=== PATIENT | female | born 1975 | race Caucasian/White ===

== ENCOUNTER 2018-06-16 14:36 | Outpatient (CLI) | payer OTHER ==
[2018-06-16 15:01] LABS: #Basophils 0.1 thou/uL (0.0-0.2); #Eosinphils 0.4 thou/uL (0.0-0.7); #Lymphocytes 1.8 thou/uL (1.20-3.40); #Monocytes 0.6 thou/uL (0.11-0.59); #Neutrophils 4.8 thou/uL (1.40-6.50); %Eosinophils 5.5 % (0.0-10.0); %Monocytes 8.2 % (0.0-10.0); %Neutrophils 62.4 % (42.0-75.0); Hemoglobin 13.9 g/dL (12.0-16.0); Mean Corpuscular HGB CONC 35.6 g/dL (32.0-36.0); Mean Platelet Volume 8.5 fL (7.4-10.4); Platelet Count 204 thou/uL (130-400); RBC Distribution Width 9.9 % (11.5-14.5); Red Blood Cell (RBC) Count 4.49 mill/uL (4.20-5.40); White Blood Cell (WBC) Count 7.6 thou/uL (4.8-10.8)
[2018-06-16 15:16] LABS: ALT (SGPT) 14 U/L (8-55); AST (SGOT) 20 U/L (5-34); Albumin 4.3 g/dL (3.5-5.0); Alkaline Phosphatase 66 U/L (40-150); Anion Gap 12 mmol/L (10-20); BUN (Urea Nitrogen) 14 mg/dL (7.0-18.7); Bilirubin, Total 0.4 mg/dL (0.2-1.2); CRP (Inflammatory) Less than 0.50 mg/dL (= or < 0.5); Calc. Creatinine Clearance 0 mL/min (70-130); Calcium 9.4 mg/dL (7.8-10.44); Carbon Dioxide 25 mmol/L (22-29); Chloride 105 mmol/L (98-107); Estimated GFR-MDRD 55; Globulin 3.2 g/dL (2.4-3.5); Glucose 81 mg/dL (70-105); Potassium 3.8 mmol/L (3.5-5.1); Protein, Total 7.5 g/dL (6.0-8.3); Sodium 138 mmol/L (136-145)
--- NOTE | 2018-06-16 15:21 | MMO ---
BILATERAL SCREENING MAMMOGRAM: Date: 06/16/18 HISTORY: 42-year-old female. Routine screening mammography. COMPARISON: 01/25/14, 02/25/15, 03/11/16, 06/14/17. TECHNIQUE: CC and MLO views of both breasts are submitted for interpretation. This patient's mammogram was reviewed with the assistance of computer-aided detection. FINDINGS: The breasts are composed of scattered fibroglandular tissue. Bilaterally, no suspicious dominant mass , architectural distortion, or suspicious calcifications. IMPRESSION: BIRADS 1: Negative RECOMMENDATION: Annual mammogram. POS: [facility]
== END 2018-06-16 14:37 | disposition home or self-care (01) ==
LOC: SCSMAMMO 14:36
PROVIDERS: ATTEND Student in an Organized Health Care Education/Training Program
DX: Z12.31 Encounter for screening mammogram for malignant neoplasm of breast (principal); K51.00 Ulcerative (chronic) pancolitis without complications
CPT/HCPCS: 36415; 77067; 80053; 85025; 86140

== ENCOUNTER 2018-08-22 13:40 | Inpatient (IN) | payer OTHER ==
[2018-08-22 15:11] VITALS: BMI 25.4
[2018-08-22] MEDS ORDERED: Sodium Chloride 0.9% 1,000 ML IV SCH (15:15)
[2018-08-22] MEDS ORDERED: Acetaminophen 325 MG TAB PO PRN (15:29)
[2018-08-22] MEDS ORDERED: HYDROcodone/Acetaminophen 5/325 mg Tablet PO PRN (15:29)
[2018-08-22] MEDS ORDERED: hydrALAZINE 20 MG/ML VIAL SLOW IVP PRN (15:31)
[2018-08-22 15:59] LABS: ALT (SGPT) 16 U/L (8-55); AST (SGOT) 17 U/L (5-34); Albumin 3.9 g/dL (3.5-5.0); Alkaline Phosphatase 66 U/L (40-150); Anion Gap 14 mmol/L (10-20); BUN (Urea Nitrogen) 9 mg/dL (7.0-18.7); Bilirubin, Total 0.5 mg/dL (0.2-1.2); CRP (Inflammatory) 10.83 mg/dL (= or < 0.5); Calc. Creatinine Clearance 85 mL/min (70-130); Calcium 9.3 mg/dL (7.8-10.44); Carbon Dioxide 25 mmol/L (22-29); Chloride 104 mmol/L (98-107); Estimated GFR-MDRD 68; Glucose 111 mg/dL (70-105); Magnesium 2.4 mg/dL (1.6-2.6); Phosphorus 3.8 mg/dL (2.3-4.7); Potassium 4.1 mmol/L (3.5-5.1); Protein, Total 7.9 g/dL (6.0-8.3); Sodium 139 mmol/L (136-145)
[2018-08-22] MEDS ORDERED: Magnesium 2 GM/50 ML 2 GM in Premix Bag 1 BAG IVPB PRN (16:00)
[2018-08-22 16:11] LABS: Band 21 % (5-11); Hemoglobin 14.5 g/dL (12.0-16.0); Lymphocytes 3 % (21-51); MDiff Complete? YES; Mean Corpuscular HGB CONC 32.9 g/dL (32.0-36.0); Mean Corpuscular Hemoglobin 30.3 pg (27.0-31.0); Mean Corpuscular Volume 92.2 fL (78.0-98.0); Mean Platelet Volume 7.1 fL (7.4-10.4); Monocytes 5 % (0-10); Neutrophil 71 % (42-75); PLT Morphology Comment Appears Adequate; Platelet Count 303 thou/uL (130-400); RBC Distribution Width 10.6 % (11.5-14.5); Red Blood Cell (RBC) Count 4.77 mill/uL (4.20-5.40); White Blood Cell (WBC) Count 9.1 thou/uL (4.8-10.8)
[2018-08-22] MEDS: Dextrose 5 %-0.45 % NaCl 1,000 ML IV SCH ×2 (16:55→22:55)
--- NOTE | 2018-08-22 19:46 | HP ---
DATE OF ADMISSION: 08/22/2018 PRIMARY CARE PHYSICIAN: Andrew Marie M.D. PRIMARY WELL DRILLER: See Epstein M.D. CHIEF COMPLAINT: Direct transfer from Dr. Epstein's office for ulcerative colitis flare. HISTORY OF PRESENT ILLNESS: Patient is a 42-year-old female with ulcerative colitis who presented to Dr. Epstein's office today with 4 weeks' history of abdominal discomfort. The abdominal discomfort st arted after her Simponi injection. It is progressively getting worse. She is unable to keep any kel d down. She has constant diarrhea. Occasionally, she also has blood in the stool. Recently, she wa s evaluated by Gastroenterology service and was started on prednisone. Her symptoms persistently got worse for which she was sent to the hospital for IV steroids from GI clinic. She denies any fever o r chills. Abdominal pain was generalized, more or less constant with occasional cramping. She denie s any vomiting. She had mild nausea without vomiting. PAST MEDICAL HISTORY: 1. Ulcerative colitis. 2. Migraines. 3. GERD. PAST SURGICAL HISTORY: and right knee surgery when she was 14. ALLERGIES: The patient is allergic to SULFA. CURRENT HOME MEDICATIONS: 1. Prednisone that was started 5 days ago. 2. Zantac 150 mg daily. 3. Mesalamine 2.4 g daily. 4. Simponi 50 mg subcutaneous every 30 days. FAMILY HISTORY: Negative for inheritable diseases in her family. SOCIAL HISTORY: Currently lives at home. No smoking, alcohol, or drug use. REVIEW OF SYSTEMS: The following complete review of systems was negative, unless otherwise mentioned in the HPI or below: Constitutional: Weight loss or gain, ability to conduct usual activities. Skin: Rash, itching. Eyes: Double vision, pain. ENT/Mouth: Nose bleeding, neck stiffness, pain, tenderness. Cardiovascular: Palpitations, dyspnea on exertion, orthopnea. Respiratory: Shortness of breath, wheezing, cough, hemoptysis, fever or night sweats. Gastrointestinal: Poor appetite, abdominal pain, heartburn, nausea, vomiting, constipation, or diarr hea. Genitourinary: Urgency, frequency, dysuria, nocturia. Musculoskeletal: Pain, swelling. Neurologic/Psychiatric: Anxiety, depression. Allergy/Immunologic: Skin rash, bleeding tendency. PHYSICAL EXAMINATION: VITAL SIGNS: Temperature 98.4, pulse rate of 74, respirations 16, blood pressure 111/73 with O2 satu ration 100% on room air. GENERAL: A 42-year-old female in no apparent distress. Feels generally weak and fatigued. HEENT: Head atraumatic, normocephalic. Sclerae are anicteric. Moist mucous membrane. No oral lesi on. NECK: Supple, no JVD, no carotid bruit. LUNGS: Clear to auscultation bilaterally, no wheezing, rales or rhonchi. HEART: S1, S2 present. Regular rate and rhythm. No murmur, rubs, or gallops appreciated. ABDOMEN: Soft, mild generalized tenderness, no rebound or guarding, no costovertebral angle tenderne ss. EXTREMITIES: No edema or calf tenderness. NEUROLOGIC: Grossly nonfocal, moves all four extremities. PSYCHIATRY: Alert, awake, oriented x3. SKIN: Warm and dry. LYMPH NODES: No palpable lymph nodes in the neck. PERIPHERAL VASCULAR: Radial pulses palpable bilaterally. MUSCULOSKELETAL: No joint swelling or tenderness. LABORATORY AND X-RAY FINDINGS: CBC showed WBC 9.1 with hemoglobin 14.5, hematocrit 44, platelet coun t 303. ESR 55. CRP 10.8. Sodium 139, potassium 4.1, chloride 104, bicarbonate 25, BUN 9, creatinin e 0.9. LFTs in normal range. Stool workup has been ordered and pending at this time. IMPRESSION AND PLAN: 1. Ulcerative colitis exacerbation causing abdominal pain and diarrhea. 2. Gastroesophageal reflux disease. 3. Dehydration. 4. 21% bandemia with elevated inflammatory markers. 5. Chronic kidney disease stage 2. 6. History of migraines. PLAN: The patient will be monitored on the medical floor. We will consult Gastroenterology. We kushal l start her on IV steroids. Due to significant bandemia, she was started on empiric ciprofloxacin an d Flagyl. Stool workup will be sent for Clostridium difficile, ova and parasite, and wbc. Clear liq uid diet for now. IV fluids. We will repeat labs in the morning. Plan of care was discussed with the patient in detail. She stated understanding.
[2018-08-22] MEDS: Famotidine 20 MG TAB PO SCH (20:04)
[2018-08-22] MEDS: metroNIDAZOLE 500 MG in Premix Bag 1 BAG IVPB SCH (20:10)
--- NOTE | 2018-08-22 22:08 | CON ---
DATE OF CONSULTATION: 08/22/2018 GASTROENTEROLOGY CONSULTATION NOTE CHIEF COMPLAINT: Diarrhea, blood in the stool, abdominal pain. HISTORY OF PRESENT ILLNESS: Ms. Jesus is a 42-year-old woman whom I have been following for ulcerati ve colitis since 2010. She has been on Simponi and Lialda most recently. She was doing well. I las t saw her in the office on 06/15/2018. About 2-1/2 weeks ago, she started flaring with diarrhea and blood in the stools and diffuse cramping abdominal pain. She came back to the office and was started on Uceris. She took that for about 5 days, but continued to worsen, so we then started prednisone. She has been on today with her 5th day of prednisone; however, she has continued again to worsen. S he had a bowel movement every couple of hours, waking her from sleep last night. She has had more fr equent bowel movements through the day in the mornings. She has had red blood with the stool. No na usea or vomiting. No fever. She has lost 8 pounds in the last two and a half weeks. Any time she e ats, she immediately gets diarrhea. PAST MEDICAL HISTORY: Ulcerative pancolitis diagnosed in 2010. She was initially treated with Liald a, steroids and azathioprine. She developed suspected pancreatitis with azathioprine and that was di scontinued. She was started on Remicade in 2010. She did receive multiple courses of prednisone bet ween 04/2011 and 08/2011. She developed hip and shoulder and back pain and she was started on methot rexate by Rheumatology in 2011. She did well until 2013 and then she again developed a flare. She r emained on methotrexate and again received steroids. Remicade antibodies came back positive and she was changed to Simponi in 2013. She remained on methotrexate at that point. She also remained on me salamine. She did well and had a colonoscopy in 2015 that showed a deep remission with quiescent dis ease by biopsies. She flared again in 10/2018 and required steroids. Her Lialda was increased back to 4 tablets daily. She was given a booster dose of Simponi at 2 weeks and did well after that. She has now flared again in 07/2018. Methotrexate was discontinued in 02/2018. PAST MEDICAL HISTORY: Arthritis. PAST SURGICAL HISTORY: and knee surgery. FAMILY HISTORY: Negative for GI malignancy. SOCIAL HISTORY: No alcohol, tobacco or drugs. She is and has two children. 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 REVIEW OF SYSTEMS: Negative x10 systems reviewed except as stated in the history of present illness. PHYSICAL EXAMINATION: VITAL SIGNS: Temperature 97.5, pulse 66, blood pressure 131/80. She is flushed from the steroids. GENERAL: She is in no acute distress, alert and oriented x3. HEENT: Eyes have no scleral icterus. Oropharynx is clear without lesions. NECK: No cervical or supraclavicular lymphadenopathy. LUNGS: Clear to auscultation bilaterally. HEART: Regular rate and rhythm without murmur. ABDOMEN: Soft, mild diffuse tenderness, without guarding. Bowel sounds are present. EXTREMITIES: No lower extremity edema. NEUROLOGIC: Cranial nerves are grossly intact. LABORATORY DATA: White blood cell count 9.1, hemoglobin 14.5, platelets 303. Sed rate of 55 with up per limit normal of 20, creatinine 0.9, bilirubin 0.5, AST 17, ALT 16, alkaline phosphatase 66, C-liza ctive protein 10.8, albumin 3.9. IMPRESSION: Exacerbation of ulcerative pancolitis. She has been well controlled on Simponi every 4 weeks this year; however, she did have a flare in October that was improved after a booster dose of S imponi was given 2 weeks. I will request Simponi trough level and then plan to take her next dose wi ll be early tomorrow morning. Her next dose is actually due on Tuesday, 5 days from now. Ultimately, we will have to rule out an infectious process and determine if she is ultimately failing to respond adequately to Simponi at which point change in medications I have to be considered. If her Simponi level is at multiple levels, then changing class of medicine may be preferable. RECOMMENDATIONS: 1. Solu-Medrol 20 mg IV q.8 hours. 2. Stool for Clostridium difficile culture, ova and parasite. 3. Check Simponi trough level. We will plan to give home Simponi dose tomorrow morning. 4. If she fails to respond to the steroids in the early dose of Simponi, then flex sig to rule out C MV will be indicated. 5. Continue Lialda 4 tablets daily.
[2018-08-23] MEDS: metroNIDAZOLE 500 MG in Premix Bag 1 BAG IVPB SCH ×3 (04:58→20:26)
[2018-08-23 05:36] LABS: #Lymphocytes 0.7 thou/uL (1.20-3.40); #Monocytes 0.6 thou/uL (0.11-0.59); #Neutrophils 5.2 thou/uL (1.40-6.50); %Basophils 0.2 % (0.0-1.0); %Eosinophils 0.1 % (0.0-10.0); %Lymphocytes 10.6 % (21.0-51.0); %Monocytes 9.5 % (0.0-10.0); %Neutrophils 79.5 % (42.0-75.0); Hemoglobin 12.2 g/dL (12.0-16.0); Mean Corpuscular HGB CONC 31.9 g/dL (32.0-36.0); Mean Corpuscular Hemoglobin 29.5 pg (27.0-31.0); Mean Corpuscular Volume 92.3 fL (78.0-98.0); Mean Platelet Volume 7.4 fL (7.4-10.4); Platelet Count 291 thou/uL (130-400); RBC Distribution Width 10.5 % (11.5-14.5); Red Blood Cell (RBC) Count 4.15 mill/uL (4.20-5.40); White Blood Cell (WBC) Count 6.5 thou/uL (4.8-10.8)
[2018-08-23 05:39] LABS: Anion Gap 10 mmol/L (10-20); BUN (Urea Nitrogen) 6 mg/dL (7.0-18.7); Calc. Creatinine Clearance 92 mL/min (70-130); Calcium 8.4 mg/dL (7.8-10.44); Carbon Dioxide 25 mmol/L (22-29); Chloride 107 mmol/L (98-107); Estimated GFR-MDRD 80; Glucose 163 mg/dL (70-105); Potassium 3.5 mmol/L (3.5-5.1); Sodium 138 mmol/L (136-145)
[2018-08-23] MEDS: Dextrose 5 %-0.45 % NaCl 1,000 ML IV SCH ×2 (06:19→13:45)
[2018-08-23] MEDS ORDERED: SIMPONI SC SCH (08:00)
[2018-08-23] MEDS: Famotidine 20 MG TAB PO SCH ×2 (08:01→20:27)
[2018-08-23] MEDS: Mesalamine DR 400 mg Capsule PO SCH ×3 (08:02→17:00)
[2018-08-23] MEDS: Saccharomyces boulardii 250 MG CAP PO SCH (08:02)
[2018-08-23] MEDS ORDERED: MESALAMINE 2.4 GM PO SCH (09:00)
--- NOTE | 2018-08-23 13:36 | PRG ---
DATE OF SERVICE: 08/23/2018 Ms. Jesus feels much better. She only had to get up twice for bowel movements last night and she onl y had a couple of bowel movements this morning so far. Usually her mornings are her worse time. The abdominal pain is improving. OBJECTIVE: VITAL SIGNS: Temperature 98.8, pulse 54, blood pressure 99/65. GENERAL: She is flushed in no acute distress, alert and oriented x3. LUNGS: Clear to auscultation bilaterally. HEART: Regular rate and rhythm without murmur. ABDOMEN: Soft, mild diffuse tenderness, but no guarding. Her bowel sounds are present. EXTREMITIES: No lower extremity edema. LABORATORY DATA: White blood cell count 6.5, hemoglobin 12.2, platelets 291. Creatinine 0.78. IMPRESSION: Exacerbation of chronic patricia ulcerative colitis. Stool studies are negative for C. diff and negative for O&P rapid screen, culture is pending. Her C-reactive protein was markedly elevated at 10.3. Clinically, she is improving with IV methylprednisolone. RECOMMENDATIONS: 1. We will advance her diet today. 2. Continue methylprednisolone. We should be able to transition with her last dose of methylprednis olone on Tuesday morning and then start prednisone on Tuesday with possible discharge home ay afternoon. I would continue the IV steroids today and tomorrow until first dose Tuesday. 3. Symphony drug level was drawn last night. She was given her next maintenance dose this morning w hich was just a few days early. 4. Continue mesalamine. 5. She is on antibiotics. As long as they have been started at this point I would complete a 5-day course of Cipro and metronidazole.
[2018-08-23 16:47] LABS: Ref Lab Test Ordered SIMPONI TROUGH LEVEL; Reference Lab Name LABCORP
--- NOTE | 2018-08-23 21:23 | PDOC.PN ---
- Subjective Encounter Start Date: 08/23/18 Encounter Start Time: 13:00 Patient seen and examined for IBD flare. Feeling better. Abd pain improving. No new complaints. No overnight events - Objective Resuscitation Status: Resuscitation Status FULL:Full Resuscitation MAR Reviewed: Yes Vital Signs & Weight: Vital Signs (12 hours) Temp Pulse Resp BP BP Pulse Ox 08/23/18 20:00 97.4 F L 68 16 101/68 98 08/23/18 16:03 97.2 F L 78 19 122/85 96 Weight Admit Weight 148 lb Weight 148 lb I&O: 08/22/18 08/23/18 08/24/18 06:59 06:59 06:59 Intake Total 1530 2300 Balance 1530 2300 Result Diagrams: 08/23/18 05:05 08/23/18 05:05 Phys Exam - Physical Examination Constitutional: NAD Psychiatric: A&O x 3 Dx/Plan - Plan DVT proph w/SCDs 1. Ulcerative colitis exacerbation causing abdominal pain and diarrhea. 2. Gastroesophageal reflux disease. 3. Dehydration. 4. 21% bandemia with elevated inflammatory markers. 5. Chronic kidney disease stage 2. 6. History of migraines. 7. Moderate PEM PLAN: Cont Atbx/Steroids Cont IVF Advance diet to low residue Cont current meds as below Review of Systems - Review of Systems Respiratory: negative: Cough, Dry, Shortness of Breath, Hemoptysis, SOB with Excertion, Pleuritic Pain, Sputum, Wheezing Cardiovascular: negative: chest pain, palpitations, orthopnea, paroxysmal nocturnal dyspnea, edema, light headedness, other - Medications/Allergies Allergies/Adverse Reactions: Allergies Allergy/AdvReac Type Severity Reaction Status Date / Time Sulfa (Sulfonamide Allergy Verified 08/22/18 15:01 Antibiotics) Medications: Current Medications Acetaminophen (Tylenol) 650 mg PO Q4H PRN PRN Reason: Headache/Fever/Mild Pain (1-3) Hydrocodone Bitart/Acetaminophen ([place]ullard 5/325) 1 tab PO Q4H PRN PRN Reason: Moderate Pain (4-6) Famotidine (Pepcid) 20 mg PO BID OPAL Last Admin: 08/23/18 20:27 Dose: 20 mg Hydralazine HCl (Apresoline) 10 mg SLOW IVP Q4H PRN PRN Reason: SBP Greater Than 180 Dextrose/Sodium Chloride (D5 1/2 Ns) 1,000 mls @ 125 mls/hr IV .Q8H [facility] Last Admin: 08/23/18 13:45 Dose: 1,000 mls Ciprofloxacin/Dextrose 400 mg/ (Device) 200 mls @ 200 mls/hr IVPB 0800,2000 [facility] Last Admin: 08/23/18 20:22 Dose: 200 mls Metronidazole 500 mg/ Device 100 mls @ 100 mls/hr IVPB 0500,1300,2100 [facility] Last Admin: 08/23/18 20:26 Dose: 100 mls Mesalamine (Delzicol Dr) 800 mg PO TID-WM [facility] Last Admin: 08/23/18 17:00 Dose: 800 mg Methylprednisolone Sodium Succinate (Solu-Medrol) 20 mg IVP Q8HR [facility] Last Admin: 08/23/18 13:47 Dose: 20 mg Morphine Sulfate (Morphine) 2 mg SLOW IVP Q4H PRN PRN Reason: Severe Pain (7-10) Stop: 08/26/18 13:19 Multivitamins (Theragran) 1 tab PO DAILY [facility] Simponi 100mg 1 each SC 0800 [facility] Stop: 08/23/18 23:59 Saccharomyces Boulardii (Florastor) 250 mg PO DAILY [facility] Last Admin: 08/23/18 08:02 Dose: 250 mg Sodium Chloride (Flush - Normal Saline) 10 ml IVF PRN PRN PRN Reason: Saline Flush
[2018-08-24] MEDS: Dextrose 5 %-0.45 % NaCl 1,000 ML IV SCH ×2 (00:22→09:46)
[2018-08-24] MEDS: metroNIDAZOLE 500 MG in Premix Bag 1 BAG IVPB SCH ×2 (05:51→13:29)
[2018-08-24] MEDS: Famotidine 20 MG TAB PO SCH ×2 (09:43→20:36)
[2018-08-24] MEDS: Saccharomyces boulardii 250 MG CAP PO SCH (09:44)
[2018-08-24] MEDS: Mesalamine DR 400 mg Capsule PO SCH ×2 (09:44→20:36)
[2018-08-24] MEDS: Multivit, Therapeutic 1 TAB PO SCH (09:44)
--- NOTE | 2018-08-24 18:19 | PDOC.PN ---
- Subjective Encounter Start Date: 08/24/18 Encounter Start Time: 11:30 Patient seen and examined for UC flare. Toleraing low residue diet. One loose BM today. Abd pain improving. No new complaints. No overnight events - Objective Resuscitation Status: Resuscitation Status FULL:Full Resuscitation MAR Reviewed: Yes Vital Signs & Weight: Vital Signs (12 hours) Temp Pulse Resp BP Pulse Ox 08/24/18 13:43 100 96 08/24/18 09:30 98 08/24/18 07:52 97.5 F L 45 L 16 120/79 98 Weight Admit Weight 148 lb Weight 148 lb I&O: 08/23/18 08/24/18 08/25/18 06:59 06:59 06:59 Intake Total 1530 4600 Balance 1530 4600 Result Diagrams: 08/23/18 05:05 08/23/18 05:05 Phys Exam - Physical Examination Constitutional: NAD Respiratory: no wheezing, no rhonchi Cardiovascular: RRR, no rub Gastrointestinal: soft, positive bowel sounds mild gen tenderness, no guarding/rigidity Musculoskeletal: no edema Neurological: moves all 4 limbs Dx/Plan - Plan DVT proph w/SCDs 1. Ulcerative colitis exacerbation causing abdominal pain and diarrhea. 2. Gastroesophageal reflux disease. 3. Dehydration. 4. 21% bandemia with elevated inflammatory markers. 5. Chronic kidney disease stage 2. 6. History of migraines. 7. Moderate PEM PLAN: Cont Atbx/Steroids DC IVF per patient req Cont low residue diet Cont current meds as below Review of Systems - Review of Systems Respiratory: negative: Cough, Dry, Shortness of Breath, Hemoptysis, SOB with Excertion, Pleuritic Pain, Sputum, Wheezing Cardiovascular: negative: chest pain, palpitations, orthopnea, paroxysmal nocturnal dyspnea, edema, light headedness, other - Medications/Allergies Allergies/Adverse Reactions: Allergies Allergy/AdvReac Type Severity Reaction Status Date / Time Sulfa (Sulfonamide Allergy Verified 08/22/18 15:01 Antibiotics) Medications: Current Medications Acetaminophen (Tylenol) 650 mg PO Q4H PRN PRN Reason: Headache/Fever/Mild Pain (1-3) Hydrocodone Bitart/Acetaminophen ([place] 5/325) 1 tab PO Q4H PRN PRN Reason: Moderate Pain (4-6) Famotidine (Pepcid) 20 mg PO BID OPAL Last Admin: 08/24/18 09:43 Dose: 20 mg Hydralazine HCl (Apresoline) 10 mg SLOW IVP Q4H PRN PRN Reason: SBP Greater Than 180 Ciprofloxacin/Dextrose 400 mg/ (Device) 200 mls @ 200 mls/hr IVPB 0800,2000 [facility] Last Admin: 08/24/18 09:45 Dose: 200 mls Metronidazole 500 mg/ Device 100 mls @ 100 mls/hr IVPB 0500,1300,2100 [facility] Last Admin: 08/24/18 13:29 Dose: 100 mls Mesalamine (Delzicol Dr) 2,400 mg PO BID [facility] Last Admin: 08/24/18 09:44 Dose: 2,400 mg Methylprednisolone Sodium Succinate (Solu-Medrol) 20 mg IVP Q8HR [facility] Last Admin: 08/24/18 13:31 Dose: 20 mg Morphine Sulfate (Morphine) 2 mg SLOW IVP Q4H PRN PRN Reason: Severe Pain (7-10) Stop: 08/26/18 13:19 Multivitamins (Theragran) 1 tab PO DAILY [facility] Last Admin: 08/24/18 09:44 Dose: 1 tab Simponi 100mg 1 each SC 0800 [facility] Stop: 08/23/18 23:59 Saccharomyces Boulardii (Florastor) 250 mg PO DAILY [facility] Last Admin: 08/24/18 09:44 Dose: 250 mg Sodium Chloride (Flush - Normal Saline) 10 ml IVF PRN PRN PRN Reason: Saline Flush Last Admin: 08/24/18 13:33 Dose: 10 ml
[2018-08-24] MEDS: Ciprofloxacin 500 MG TAB PO SCH (20:36)
[2018-08-24] MEDS: metroNIDAZOLE 500 MG TAB PO SCH (20:36)
--- NOTE | 2018-08-24 21:15 | PRG ---
DATE OF SERVICE: 08/24/2018 SUBJECTIVE: Ms. Jesus is feeling much better. She had 3 bowel movements today without any bleeding and a little bit . No significant abdominal pain. She has tolerated solid diet today. OBJECTIVE: VITAL SIGNS: Temperature 97.5, pulse 100, blood pressure 120/79. GENERAL: She is in no acute distress, alert and oriented x3. HEENT: Eyes have no scleral icterus. Oropharynx is clear without lesions. NECK: No cervical or supraclavicular lymphadenopathy. LUNGS: Clear to auscultation bilaterally. HEART: Regular rate and rhythm without murmur. ABDOMEN: Soft, nontender, nondistended. Bowel sounds are present. EXTREMITIES: No lower extremity edema. IMPRESSION: Acute exacerbation of chronic ulcerative colitis with abdominal pain, diarrhea, and raul tochezia clinically improved with IV steroids. She did receive Simponi injection yesterday morning. RECOMMENDATIONS: 1. Change to prednisone taper tomorrow. She can discharge on prednisone 40 mg daily for 7 days, the n 30 mg daily for 7 days, then 20 mg daily for 7 days, then 10 mg daily for 7 days and finally 5 mg d aily for 7 days, then discontinue. 2. Complete a 5-day course of Cipro and metronidazole including which she has received in the hospit al. 3. Continue Lialda at 4 tablets daily. 4. She should be ready to discharge home tomorrow. She can follow up in GI clinic in 3 to 4 weeks. 5. Await Simponi trough level to determine if she needs booster dosing.
[2018-08-25 04:20] LABS: #Lymphocytes 1.2 thou/uL (1.20-3.40); #Monocytes 0.8 thou/uL (0.11-0.59); #Neutrophils 6.4 thou/uL (1.40-6.50); %Basophils 0.3 % (0.0-1.0); %Eosinophils 0.3 % (0.0-10.0); %Lymphocytes 13.9 % (21.0-51.0); %Monocytes 9.2 % (0.0-10.0); %Neutrophils 76.2 % (42.0-75.0); Hemoglobin 12.6 g/dL (12.0-16.0); Mean Corpuscular HGB CONC 33.2 g/dL (32.0-36.0); Mean Corpuscular Hemoglobin 30.8 pg (27.0-31.0); Mean Corpuscular Volume 92.7 fL (78.0-98.0); Mean Platelet Volume 7.1 fL (7.4-10.4); Platelet Count 307 thou/uL (130-400); RBC Distribution Width 10.6 % (11.5-14.5); White Blood Cell (WBC) Count 8.4 thou/uL (4.8-10.8)
[2018-08-25 04:35] LABS: Anion Gap 9 mmol/L (10-20); BUN (Urea Nitrogen) 8 mg/dL (7.0-18.7); Calc. Creatinine Clearance 96 mL/min (70-130); Calcium 8.1 mg/dL (7.8-10.44); Carbon Dioxide 25 mmol/L (22-29); Chloride 107 mmol/L (98-107); Estimated GFR-MDRD 79; Glucose 112 mg/dL (70-105); Potassium 3.7 mmol/L (3.5-5.1); Sodium 137 mmol/L (136-145)
[2018-08-25] MEDS: Ciprofloxacin 500 MG TAB PO SCH (05:35)
[2018-08-25] MEDS ORDERED: predniSONE 20 MG TAB PO SCH (08:00)
[2018-08-25] MEDS: Mesalamine DR 400 mg Capsule PO SCH (10:14)
[2018-08-25] MEDS: Saccharomyces boulardii 250 MG CAP PO SCH (10:15)
[2018-08-25] MEDS: metroNIDAZOLE 500 MG TAB PO SCH (10:15)
[2018-08-25] MEDS: Multivit, Therapeutic 1 TAB PO SCH (10:15)
[2018-08-25] MEDS: Famotidine 20 MG TAB PO SCH (10:15)
[2018-08-25 13:00] VITALS: BP 126/88; TEMP 98.2
--- NOTE | 2018-08-25 14:59 | DIS ---
DATE OF ADMISSION: 08/22/2018 DATE OF DISCHARGE: 08/25/2018 DISCHARGE DISPOSITION: Home. FOLLOWUP: 1. Follow up with primary care physician, Dr. Andrew Marie in 1 week. 2. Follow up with Dr. See Epstein in 2 weeks. ALLERGIES: Patient is allergic to SULFA. DISCHARGE MEDICATIONS: 1. Prednisone 40 mg daily for 1 week, then 30 mg daily for 1 week, then 20 mg daily for 1 week, then 10 mg daily for 1 week and then 5 mg daily for 1 week, then discontinue. 2. Flagyl 500 mg 3 times daily for the next 2 more days. 3. All other home medications were left, unchanged. The patient was seen on the day of discharge, denies any new complaints, abdominal discomfort has sig nificantly improved. BRIEF HOSPITAL COURSE: Patient is a 42-year-old female with ulcerative colitis who presented to Dr. Epstein's office with abdominal discomfort. She was sent as a direct admit from Dr. Epstein's office for exacerbation of ulcerative colitis. She was started on IV fluids, IV steroids as well as antibiotic s. Her symptoms have significantly improved. The steroids have been changed to oral. She appears s table for discharge. FINAL DIAGNOSES: 1. Ulcerative colitis exacerbation. 2. Abdominal pain and diarrhea secondary to #1. 3. Gastroesophageal reflux disease. 4. Dehydration. 5. A 21% bandemia with elevated inflammatory markers, secondary to #1. 6. Chronic kidney disease stage 2. 7. Moderate protein energy malnutrition. 8. History of migraines. Plan of care was discussed with the patient in detail. She stated understanding.
== END 2018-08-25 13:00 | disposition home or self-care (01) | DRG 386 ==
LOC: T4-A 13:40
PROVIDERS: ADMIT Internal Medicine Infectious Disease; ATTEND Internal Medicine Infectious Disease
DX: K51.811 Other ulcerative colitis with rectal bleeding (principal); E44.0 Moderate protein-calorie malnutrition; E86.0 Dehydration; N18.2 Chronic kidney disease, stage 2 (mild); K21.9 Gastro-esophageal reflux disease without esophagitis; M19.90 Unspecified osteoarthritis, unspecified site; Z68.25 Body mass index [BMI] 25.0-25.9, adult; Z79.52 Long term (current) use of systemic steroids
CPT/HCPCS: 36415; 80048; 80053; 82274; 83630; 83735; 84100; 85025; 85652; 86140; 87324; 87328; 87329; 87449; J0744; J2920; J7506